=== PATIENT | female | born 1965 | race Caucasian/White ===

== ENCOUNTER 2020-07-28 12:07 | Emergency (ER) | payer BC ==
[2020-07-28 13:15] LABS: Basophils % 0.5 % (0-1.3); Hematocrit 39.2 % (36.0-45.0); Lymphocytes % 21.2 % (15.3-44.8); MPV 9.7 fL (7.6-11.3); RBC Red Blood Cell Count 4.39 M/uL (3.86-4.86)
[2020-07-28 13:21] LABS: Urine Blood NEGATIVE (NEG); Urine Glucose NEGATIVE (NEG); Urine Protein NEGATIVE (NEG); Urine Specific Gravity >1.030 (1.005-1.030)
[2020-07-28] MEDS ORDERED: ONDANSETRON 4 MG/2 ML VIAL ONE (13:21)
[2020-07-28] MEDS ORDERED: MORPHINE 2 MG/ML SYR ONE (13:21)
[2020-07-28] MEDS ORDERED: NA CHLORIDE 0.9% 1,000 ML ONE (13:22)
[2020-07-28] MEDS ORDERED: CIPROFLOXACIN 400mg IV 400 MG/200 ML BAG IV ONE (13:22)
[2020-07-28] MEDS ORDERED: METRONIDAZOLE 500mg IVPB 500 MG/100 ML BAG IV ONE (13:22)
--- NOTE | 2020-07-28 13:23 | RAD REPORT ---
EXAM DESCRIPTION: RAD - Chest Single View - 07/28/2020 1:08 pm CLINICAL HISTORY: COUGH Chest pain. COMPARISON: Chest Single View dated 05/08/2017; CHEST PA AND LAT 2 VIEW dated 11/21/2013 FINDINGS: Portable technique limits examination quality. The lungs are grossly clear. The heart is normal in size. No displaced fractures. IMPRESSION: No acute intrathoracic process suspected.
[2020-07-28 13:33] LABS: ALT/SGPT 42 U/L (12-78); AST/SGOT 21 U/L (15-37); Albumin 3.7 g/dL (3.4-5.0); Alkaline Phosphatase 76 U/L (45-117); BUN Blood Urea Nitrogen 14 mg/dL (7-18); Bicarbonate 27 mmol/L (21-32); Bilirubin Direct 0.1 mg/dL (0-0.2); Bilirubin Total 0.4 mg/dL (0.2-1.0); Glucose Level 110 mg/dL (74-106); Lipase 77 U/L (73-393); Magnesium 1.9 mg/dL (1.8-2.4); Potassium 3.8 mmol/L (3.5-5.1); Protein, Total 7.5 g/dL (6.4-8.2); Sodium Level 141 mmol/L (136-145); Troponin (Emerg Dept Use Only) < 0.02 ng/mL (0.0-0.045)
--- NOTE | 2020-07-28 15:29 | RAD REPORT ---
EXAM DESCRIPTION: CTAbdomen Pelvis W Contrast - 07/28/2020 3:15 pm CLINICAL HISTORY: Abdominal pain. Abd pain;Abdominal distention COMPARISON: No comparisons TECHNIQUE: Biphasic CT imaging of the abdomen and pelvis was performed with 100 ml non-ionic IV cont rast. All CT scans are performed using dose optimization technique as appropriate and may include automated exposure control or mA/KV adjustment according to patient size. FINDINGS: The lung bases are clear.Cholecystectomy clips. The liver, spleen, pancreas, adrenal glands and kidneys are within normal limits. No bowel obstruction, free air, free fluid or abscess. Significant fecal retention is seen in the col on. Scattered diverticulosis. The appendix is not identified as a discrete structure, however, no sec ondary findings of appendicitis are identified. Trace pelvic free fluid. No evidence of significant lymphadenopathy. No suspicious bony findings. IMPRESSION: Significant fecal retention in the colon.
--- NOTE | 2020-07-28 15:53 | ER ---
Nurse's Notes [facility] Name: Debo Gale Age: 55 yrs Sex: Female : 1965 Arrival Date: 07/28/2020 Time: 12:09 Bed 5 Private MD: Diagnosis: Urinary tract infection, site not specified;Constipation;Abdominal tenderness Presentation: 07/28 12:22 Chief complaint: Patient states: LUQ pain since the weekend. Reports nausea and ca1 constipation. Denies vomiting, diarrhea. Denies fever. Coronavirus screen: Client denies travel out of the [place] in the last 14 days. At this time, the client does not indicate any symptoms associated with coronavirus-19. Ebola Screen: Patient negative for fever greater than or equal to 101.5 degrees Fahrenheit, and additional compatible Ebola Virus Disease symptoms Patient denies exposure to infectious person. Patient denies travel to an Ebola-affected area in the 21 days before illness onset. No symptoms or risks identified at this time. Initial Sepsis Screen: Does the patient meet any 2 criteria? No. Patient's initial sepsis screen is negative. Does the patient have a suspected source of infection? No. Patient's initial sepsis screen is negative. Risk Assessment: Do you want to hurt yourself or someone else? Patient reports no desire to harm self or others. Onset of symptoms was July 28, 2020. 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 - Social history:: Smoking status: Patient denies any tobacco usage or history of. - Family history:: not pertinent. Screenin:42 Abuse screen: Denies threats or abuse. Nutritional screening: No deficits noted. ll2 Tuberculosis screening: No symptoms or risk factors identified. Fall Risk IV access (20 points). Ambulatory Aid- None/Bed Rest/Nurse Assist (0 pts). Gait- Normal/Bed Rest/Wheelchair (0 pts) Mental Status- Oriented to own ability (0 pts). Total Valdivia Fall Scale indicates No Risk (0-24 pts). Assessment: 13:39 General: Appears in no apparent distress. Behavior is calm, cooperative, appropriate ll2 for age. Pain: Complains of pain in epigastric area, right upper quadrant and left upper quadrant Pain currently is 10 out of 10 on a pain scale. Quality of pain is described as dull, gnawing, Pain began 2-3 days ago. Is continuous. Neuro: Level of Consciousness is awake, alert, obeys commands, Oriented to person, place, time, situation. Cardiovascular: Capillary refill < 3 seconds Patient's skin is warm and dry. Respiratory: Airway is patent Respiratory effort is even, unlabored, Respiratory pattern is regular, symmetrical. GI: Bowel sounds present X 4 quads. Abd is soft Abdomen is tender to palpation in epigastric area, right upper quadrant and left upper quadrant. GI: Reports constipation, rectal bleeding, epigastric pain. : No signs and/or symptoms were reported regarding the genitourinary system. EENT: No signs and/or symptoms were reported regarding the EENT system. Derm: Skin is intact, is healthy with good turgor, Skin is dry, Skin is pink, warm \T\ dry. Skin temperature is warm. Musculoskeletal: Circulation, motion, and sensation intact. Range of motion: intact in all extremities. 13:57 Reassessment: Patient and/or family updated on plan of care and expected duration. Pain ll2 level reassessed. Patient is alert, oriented x 3, equal unlabored respirations, skin warm/dry/pink. pt reports a significant decrease in pain and is resting comfortably. 15:29 Reassessment: Patient and/or family updated on plan of care and expected duration. Pain jl7 level reassessed. Patient is alert, oriented x 3, equal unlabored respirations, skin warm/dry/pink. asked if pt wanted another dose of morphine, but pt denied at this time. returned from CT and awaiting results. Vital Signs: 12:22 BP 124 / 98; Pulse 89; Resp 16 S; Temp 98.3(TE); Pulse Ox 99% on R/A; Weight 79.38 kg ca1 (R); Height 5 ft. 6 in. (167.64 cm) (R); Pain 8/10; 13:40 BP 123 / 85; Pulse 78; Resp 15; Pulse Ox 97% ; jl7 14:38 BP 120 / 82; Pulse 89; Resp 14; Pulse Ox 99% on R/A; ll2 15:30 BP 133 / 84; Pulse 74; Resp 14; Pulse Ox 100% on R/A; Pain 5/10; jl7 12:22 Body Mass Index 28.25 (79.38 kg, 167.64 cm) ca1 ED Course: 12:09 Patient arrived in ED. ag5 12:24 Triage completed. ca1 12:25 Arm band placed on right wrist. ca1 12:29 Cruzito Jorgensen, RN is Primary Nurse. bp 12:30 Dave Treadwell MD is Attending Physician. katelyn 13:06 Tracy Hodges, JOSE is Primary Nurse. ll2 13:08 XRAY Chest (1 view) In Process Unspecified. EDMS 13:41 Inserted saline lock: 20 gauge in right antecubital area, using aseptic technique. ll2 Blood collected. 14:39 Bed in low position. Call light in reach. Side rails up X 1. Pulse ox on. NIBP on. ll2 15:16 CT Abd/Pelvis - IV Contrast Only In Process Unspecified. EDMS 15:53 Montana Martinez MD is Referral Physician. katelyn 16:08 No provider procedures requiring assistance completed. IV discontinued, intact, ll2 bleeding controlled, No redness/swelling at site. Pressure dressing applied. Administered Medications: 13:37 Drug: morphine 2 mg Route: IVP; Site: right antecubital; ll2 16:07 Follow up: Response: No adverse reaction; Pain is decreased ll2 13:38 Drug: Cipro 400 mg Volume: 200 ml; Route: IVPB; Infused Over: 60 mins; Site: right ll2 antecubital; 16:08 Follow up: Response: No adverse reaction; IV Status: Completed infusion ll2 13:38 Drug: Zofran (Ondansetron) 4 mg Route: IVP; Site: right antecubital; ll2 16:08 Follow up: Response: No adverse reaction ll2 13:38 Drug: NS 0.9% 1000 ml Route: IV; Rate: 1 bolus; Site: right antecubital; ll2 16:07 Follow up: Response: No adverse reaction; IV Status: Completed infusion ll2 13:39 Drug: Flagyl 500 mg Volume: 100 ml; Route: IVPB; Rate: 200 ml/hr; Infused Over: 30 ll2 mins; Site: right antecubital; 16:08 Follow up: Response: No adverse reaction; IV Status: Completed infusion 2 16:07 Drug: Lactulose 30 grams Volume: 45 ml; Route: PO; 2 16:07 Follow up: Response: No adverse reaction 2 Outcome: 15:53 Discharge ordered by MD. zepeda 16:09 Discharged to home ambulatory. 2 16:09 Condition: stable 16:09 Discharge instructions given to patient, Instructed on discharge instructions, follow up and referral plans. medication usage, Demonstrated understanding of instructions, follow-up care, medications, Prescriptions given X 3. 16:12 Patient left the ED. 2 Signatures: Dispatcher [employer] EDMS Dave Treadwell MD MD cha Leal, Jahala, RN RN jl7 Cruzito Jorgensen RN RN bp Conchita Juarez RN RN ca1 Krys Ortiz [facility] Tracy Hodges RN RN 2
--- NOTE | 2020-07-28 15:53 | EDPHYS ---
Physician Documentation [facility] Name: Debo Gale Age: 55 yrs Sex: Female : 1965 Arrival Date: 07/28/2020 Time: 12:09 Bed 5 Private MD: DARRYL Physician Dave Treadwell HPI: 07/28 13:27 This 55 yrs old Female presents to ER via Ambulatory with complaints of katelyn Abdominal Pain. 13:27 The patient presents with abdominal pain abdominal distention. Onset: The katelyn symptoms/episode began/occurred 2 day(s) ago. The symptoms do not radiate. Associated signs and symptoms: Pertinent positives: nausea and vomiting. The symptoms are described as crampy. Modifying factors: The symptoms are alleviated by nothing, the symptoms are aggravated by nothing. Severity of pain: At its worst the pain was moderate in the emergency department the pain is unchanged. The patient has not experienced similar symptoms in the past. 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 - Social history:: Smoking status: Patient denies any tobacco usage or history of. - Family history:: not pertinent. ROS: 13:27 Constitutional: Negative for fever, chills, and weight loss, Eyes: Negative for injury, katelyn pain, redness, and discharge, ENT: Negative for injury, pain, and discharge, Neck: Negative for injury, pain, and swelling, Cardiovascular: Negative for chest pain, palpitations, and edema, Respiratory: Negative for shortness of breath, cough, wheezing, and pleuritic chest pain, Back: Negative for injury and pain, : Negative for injury, bleeding, discharge, and swelling, MS/Extremity: Negative for injury and deformity, Skin: Negative for injury, rash, and discoloration, Neuro: Negative for headache, weakness, numbness, tingling, and seizure, Psych: Negative for depression, anxiety, suicide ideation, homicidal ideation, and hallucinations, Allergy/Immunology: Negative for hives, rash, and allergies, Endocrine: Negative for neck swelling, polydipsia, polyuria, polyphagia, and marked weight changes, Hematologic/Lymphatic: Negative for swollen nodes, abnormal bleeding, and unusual bruising. 13:27 Abdomen/GI: Positive for abdominal pain, of the right upper quadrant, left upper quadrant, right lower quadrant and left lower quadrant. Exam: 13:27 Constitutional: This is a well developed, well nourished patient who is awake, alert, katelyn and in no acute distress. Head/Face: Normocephalic, atraumatic. Eyes: Pupils equal round and reactive to light, extra-ocular motions intact. Lids and lashes normal. Conjunctiva and sclera are non-icteric and not injected. Cornea within normal limits. Periorbital areas with no swelling, redness, or edema. ENT: Nares patent. No nasal discharge, no septal abnormalities noted. Tympanic membranes are normal and external auditory canals are clear. Oropharynx with no redness, swelling, or masses, exudates, or evidence of obstruction, uvula midline. Mucous membranes moist. Neck: Trachea midline, no thyromegaly or masses palpated, and no cervical lymphadenopathy. Supple, full range of motion without nuchal rigidity, or vertebral point tenderness. No Meningismus. Chest/axilla: Normal chest wall appearance and motion. Nontender with no deformity. No lesions are appreciated. Cardiovascular: Regular rate and rhythm with a normal S1 and S2. No gallops, murmurs, or rubs. Normal PMI, no JVD. No pulse deficits. Respiratory: Lungs have equal breath sounds bilaterally, clear to auscultation and percussion. No rales, rhonchi or wheezes noted. No increased work of breathing, no retractions or nasal flaring. Back: No spinal tenderness. No costovertebral tenderness. Full range of motion. Female : Normal external genitalia. Skin: Warm, dry with normal turgor. Normal color with no rashes, no lesions, and no evidence of cellulitis. MS/ Extremity: Pulses equal, no cyanosis. Neurovascular intact. Full, normal range of motion. Neuro: Awake and alert, GCS 15, oriented to person, place, time, and situation. Cranial nerves II-XII grossly intact. Motor strength 5/5 in all extremities. Sensory grossly intact. Cerebellar exam normal. Normal gait. Psych: Awake, alert, with orientation to person, place and time. Behavior, mood, and affect are within normal limits. 13:27 Abdomen/GI: Inspection: abdomen appears normal, Bowel sounds: hyperactive, Palpation: moderate abdominal tenderness, in the umbilical area, Liver: no appreciated palpable abnormalities, Hernia: not appreciated. Vital Signs: 12:22 BP 124 / 98; Pulse 89; Resp 16 S; Temp 98.3(TE); Pulse Ox 99% on R/A; Weight 79.38 kg ca1 (R); Height 5 ft. 6 in. (167.64 cm) (R); Pain 8/10; 13:40 BP 123 / 85; Pulse 78; Resp 15; Pulse Ox 97% ; jl7 14:38 BP 120 / 82; Pulse 89; Resp 14; Pulse Ox 99% on R/A; ll2 15:30 BP 133 / 84; Pulse 74; Resp 14; Pulse Ox 100% on R/A; Pain 5/10; jl7 12:22 Body Mass Index 28.25 (79.38 kg, 167.64 cm) ca1 MDM: 12:30 Patient medically screened. [facility] 13:33 Differential diagnosis: bowel obstruction, diverticulitis, gastritis, non-specific abd katelyn pain, pancreatitis, Peptic Ulcer Disease, Perf. Duodenal Ulcer, Perf. Gastric Ulcer, urinary tract infection. Data reviewed: vital signs, nurses notes, lab test result(s), EKG, radiologic studies, CT scan, plain films. Data interpreted: color television console monitor: rate is 89 beats/min, rhythm is regular, Pulse oximetry: on room air is 99 %. Test interpretation: by ED physician or midlevel provider: ECG, plain radiologic studies. Counseling: I had a detailed discussion with the patient and/or guardian regarding: the historical points, exam findings, and any diagnostic results supporting the discharge/admit diagnosis, lab results, radiology results. 15:51 ED course: constapition , will treat laculose and ducolax. katelyn 07/28 12:35 Order name: Basic Metabolic Panel; Complete Time: 14:41 katelyn 07/28 12:35 Order name: CBC with Diff; Complete Time: 13:26 katelyn 07/28 12:35 Order name: LFT's; Complete Time: 14:41 katelyn 07/28 12:35 Order name: Magnesium; Complete Time: 14:41 [facility] 07/28 12:35 Order name: Troponin (emerg Dept Use Only); Complete Time: 14:41 [facility] 07/28 12:35 Order name: Lipase; Complete Time: 14:41 [facility] 07/28 12:35 Order name: XRAY Chest (1 view); Complete Time: 13:26 [facility] 07/28 12:35 Order name: Urine Culture [facility] 07/28 13:08 Order name: Urine Dipstick--Ancillary (enter results); Complete Time: 13:26 07/28 13:08 Order name: Urine --Ancillary (enter results); Complete Time: 13:26 07/28 14:42 Order name: CT Abd/Pelvis - IV Contrast Only; Complete Time: 15:46 [facility] 07/28 12:35 Order name: EKG; Complete Time: 12:36 [facility] 07/28 12:35 Order name: IV Saline Lock; Complete Time: 13:40 [facility] 07/28 12:35 Order name: Labs collected and sent; Complete Time: 13:40 [facility] 07/28 12:35 Order name: O2 Per Protocol; Complete Time: 13:40 [facility] 07/28 12:35 Order name: O2 Sat Monitoring; Complete Time: 13:40 [facility] 07/28 12:35 Order name: Urine Dipstick-Ancillary (obtain specimen); Complete Time: 13:40 [facility] Administered Medications: 13:37 Drug: morphine 2 mg Route: IVP; Site: right antecubital; ll2 16:07 Follow up: Response: No adverse reaction; Pain is decreased ll2 13:38 Drug: Cipro 400 mg Volume: 200 ml; Route: IVPB; Infused Over: 60 mins; Site: right ll2 antecubital; 16:08 Follow up: Response: No adverse reaction; IV Status: Completed infusion ll2 13:38 Drug: Zofran (Ondansetron) 4 mg Route: IVP; Site: right antecubital; ll2 16:08 Follow up: Response: No adverse reaction ll2 13:38 Drug: NS 0.9% 1000 ml Route: IV; Rate: 1 bolus; Site: right antecubital; ll2 16:07 Follow up: Response: No adverse reaction; IV Status: Completed infusion ll2 13:39 Drug: Flagyl 500 mg Volume: 100 ml; Route: IVPB; Rate: 200 ml/hr; Infused Over: 30 ll2 mins; Site: right antecubital; 16:08 Follow up: Response: No adverse reaction; IV Status: Completed infusion ll2 16:07 Drug: Lactulose 30 grams Volume: 45 ml; Route: PO; ll2 16:07 Follow up: Response: No adverse reaction ll2 Disposition: 07/28/20 15:53 Discharged to Home. Impression: Urinary tract infection, site not specified, Constipation, Abdominal tenderness. - Condition is Stable. - Discharge Instructions: Abdominal Pain, Adult, Constipation, Adult, Dysuria, Urinary Tract Infection, Adult, Constipation, Adult, [id number], Urinary Tract Infection, Adult, [id number], Abdominal Pain, Adult, [id number]. - Prescriptions for Lactulose 10 gram/15 mL Oral Solution - take 30 milliliter by ORAL route once daily; 300 milliliter. Dulcolax 10 mg Rectal Suppository - insert 1 suppository by RECTAL route every 12 hours As needed; 10 suppository. Cipro 250 mg Oral Tablet - take 1 tablet by ORAL route every 12 hours; 14 tablet. - Medication Reconciliation Form, Thank You Letter, Antibiotic Education, Prescription Opioid Use form. - Follow up: Private Physician; When: 2 - 3 days; Reason: Recheck today's complaints, Continuance of care, Re-evaluation by your physician. Follow up: Montana Martinez MD; When: 2 - 3 days; Reason: Recheck today's complaints, Re-evaluation by your physician. - Problem is new. - Symptoms have improved. Signatures: Dispatcher [employer] EDDave Barney MD MD cha Acob, Cheryl, RN RN [facility] Tracy Hodges RN RN ll2 Corrections: (The following items were deleted from the chart) 15:54 15:53 07/28/2020 15:53 Discharged to Home. Impression: Urinary tract infection, site katelyn not specified; Constipation; Abdominal tenderness. Condition is Stable. Forms are Medication Reconciliation Form, Thank You Letter, Antibiotic Education, Prescription Opioid Use. Follow up: Private Physician; When: 2 - 3 days; Reason: Recheck today's complaints, Continuance of care, Re-evaluation by your physician. Problem is new. Symptoms have improved. [facility] 16:12 15:54 07/28/2020 15:53 Discharged to Home. Impression: Urinary tract infection, site ll2 not specified; Constipation; Abdominal tenderness. Condition is Stable. Forms are Medication Reconciliation Form, Thank You Letter, Antibiotic Education, Prescription Opioid Use. Follow up: Private Physician; When: 2 - 3 days; Reason: Recheck today's complaints, Continuance of care, Re-evaluation by your physician. Follow up: Montana Martinez; When: 2 - 3 days; Reason: Recheck today's complaints, Re-evaluation by your physician. Problem is new. Symptoms have improved. katelyn
[2020-07-28] MEDS ORDERED: LACTULOSE 20 GM/30 ML UCUP ONE (16:07)
[2020-07-28 16:33] VITALS: TEMP 98.3
[2020-07-28 16:37] VITALS: BP 133/84; O2SAT 100
== END 2020-07-28 16:12 | disposition home or self-care (01) ==
LOC: ER 12:07
DX: N39.0 Urinary tract infection, site not specified (principal); K59.00 Constipation, unspecified; Z88.0 Allergy status to penicillin
CPT/HCPCS: 96365; 93005; 87088; 85025; 87086; 80048; 36415; 83735; 81025; 80076; 81003; 84484; 83690; 74177; 71045; 96375; 99284; Q9967; J2270; J7030; J2405; J0744